=== PATIENT | male | born 1965 | race Caucasian/White ===

== ENCOUNTER 2016-12-13 17:56 | Inpatient (IN) | payer OTHER ==
[~2016-12-13] VITALS: Ht 167.6 cm; Wt 67.6 kg
[~2016-12-13 17:56] MED LIST: AZIT250T94 PO; GLYB1TAB3 PO; IBUP-1542 PO
[2016-12-13] MEDS ORDERED: SOD CHLORIDE 0.9% 1,000 ML IV STA (20:17)
[2016-12-13 20:43] LABS: BASOPHILS % 0.6 % (0.0-2.0); EOSINOPHILS # 0.3 10^3/ul (0.0-0.5); EOSINOPHILS % 4.3 % (0.0-7.0); HEMATOCRIT 30.9 % (42.0-52.0); HEMOGLOBIN 10.7 g/dl (14.0-18.0); LYMPHOCYTES # 2.2 10^3/ul (0.8-2.9); LYMPHOCYTES % 33.5 % (15.0-51.0); MEAN CORPUSCULAR HEMOGLOBIN 30.8 pg (29.0-33.0); MEAN CORPUSCULAR HGB CONC 34.6 g/dl (32.0-37.0); MEAN PLATELET VOLUME 9.4 fl (7.4-10.4); MONOCYTE # 0.5 10^3/ul (0.3-0.9); MONOCYTES % 8.2 % (0.0-11.0); NEUTROPHILS % 53.2 % (39.0-77.0); PLATELET COUNT 241 10^3/UL (140-415); RED BLOOD COUNT 3.47 10^6/ul (4.70-6.10); RED CELL DISTRIBUTION WIDTH 12.9 % (11.5-14.5); WHITE BLOOD COUNT 6.5 10^3/ul (4.8-10.8)
[2016-12-13] MEDS ORDERED: MECL12.574 PO (20:43)
[2016-12-13] MEDS ORDERED: FER325 PO (20:43)
[2016-12-13] MEDS ORDERED: SITA100T8 PO (20:44)
[2016-12-13 20:49] LABS: ALANINE AMINOTRANSFERASE 21 IU/L (13-69); ALBUMIN 4.2 g/dl (3.3-4.9); ALBUMIN/GLOBULIN RATIO 1.27; ALKALINE PHOSPHATASE 72 IU/L (42-121); ANION GAP 12 (8-16); ASPARTATE AMINO TRANSFERASE 16 IU/L (15-46); BILIRUBIN,INDIRECT 0.2 mg/dl (0-1.1); BILIRUBIN,TOTAL 0.2 mg/dl (0.2-1.3); BLOOD UREA NITROGEN 38 mg/dl (7-20); CALCIUM 9.4 mg/dl (8.4-10.2); CARBON DIOXIDE 24 mmol/L (21-31); CHLORIDE 110 mmol/L (97-110); CREATININE 1.81 mg/dl (0.61-1.24); GLUCOSE 158 mg/dl (70-220); POTASSIUM 4.9 mmol/L (3.5-5.1); SODIUM 141 mmol/L (135-144); TOTAL PROTEIN 7.5 g/dl (6.1-8.1)
[2016-12-13 21:02] LABS: TROPONIN-I < 0.012 ng/ml (0.00-0.12)
--- NOTE | 2016-12-13 21:21 | RADRPT ---
PROCEDURE: XR Chest. CLINICAL INDICATION: Abdominal pain. TECHNIQUE: Single frontal view of the chest. COMPARISON: 09/08/2013. FINDINGS: The cardiomediastinal silhouette is within normal limits. The lungs are clear. No signs of pleural f luid or pneumothorax are seen. The osseous structures and soft tissues are unremarkable. IMPRESSION: No evidence for active cardiopulmonary disease. RPTAT: [facility] Physician Salome Date Time Electronically viewed and signed by Maury Singletary Physician on 12/13/2016 21:20 RS/
[2016-12-13 21:48] LABS: ADD UMIC NO; UR ASCORBIC ACID NEGATIVE (NEGATIVE); UR BACTERIA FEW /HPF (NONE SEEN); UR BILIRUBIN (Dip) NEGATIVE (NEGATIVE); UR BLOOD (Dip) NEGATIVE (NEGATIVE); UR CLARITY SLIGHTLY CLOUDY (CLEAR); UR COLOR YELLOW (YELLOW); UR GLUCOSE (Dip) 1+ mg/dL (NEGATIVE); UR KETONES (Dip) NEGATIVE (NEGATIVE); UR LEUKOCYTE ESTERASE (Dip) NEGATIVE Leu/ul (NEGATIVE); UR NITRITE (Dip) NEGATIVE (NEGATIVE); UR RBC 1 /HPF (0-5); UR TOTAL PROTEIN (Dip) NEGATIVE (NEGATIVE); UR UROBILINOGEN (Dip) NEGATIVE (NEGATIVE)
[2016-12-13 22:56] VITALS: TEMP 98.7
--- NOTE | 2016-12-13 23:14 | ERA ---
ER Documentation Chief Complaint Date/Time DATE: 12/13/16 TIME: 23:13 Chief Complaint SENT BY PMD TO HAVE KIDNEYS CHECK, AFTER BLOOD TEST RESULTS HPI 51-year-old man referred here to have his creatinine checked, PMD checked labs last week and told him the Cr level was abnormal. Pt has had flank pain. Pt denies weight loss, no fever, no hematuria, no CP, no SOB. ROS All systems reviewed and are negative except as per history of present illness. Medications Home Meds Active Scripts Tamsulosin Hcl* (Flomax*) 0.4 Mg Cap.er.24h, 0.4 MG PO HS, #30 CAP Prov:MARK LEMUS V. HEAD GRINDER 12/16/16 Reported Medications Sitagliptin* (Januvia*) 100 Mg Tablet, 100 MG PO DAILY, #30 TAB 12/13/16 Ferrous Sulfate* (Ferrous Sulfate*) 325 Mg Tabec, 325 MG PO Q12H, TAB 12/13/16 Meclizine Hcl* (Antivert*) 12.5 Mg Tab, 12.5 MG PO TID, #30 TAB 12/13/16 Discontinued Reported Medications Glyburide, Micro-Metformin Hcl (Glyburid-Metformin) 1 Tab Tablet, 1 TAB PO DAILY 09/08/13 Discontinued Scripts Ibuprofen* (Ibuprofen*) 600 Mg Tablet, 600 MG PO Q6, #20 TAB Prov:BHAVNA VAZ MD 06/09/15 Azithromycin* (Zithromax*) 250 Mg Tablet, 250 MG PO .ZPACK DIRECTED, #6 TAB TAKE 500 MG (2 TABS) THE FIRST DAY THEN 250 MG (1 TAB) DAYS 2-5 Prov:BHAVNA VAZ MD 06/09/15 Allergies Allergies: Coded Allergies: No Known Allergy (Unverified , 12/13/16) PMhx/Soc anemia, DM, BPH History of Surgery: No (APPENDIX 2002) Anesthesia Reaction: No Hx Neurological Disorder: No Hx Respiratory Disorders: No Hx Cardiac Disorders: No Hx Psychiatric Problems: No Hx Miscellaneous Medical Probl: Yes (DM, VERTIGO) Hx Alcohol Use: No Hx Substance Use: No Hx Tobacco Use: No Smoking Status: Never smoker FmHx Family History: No diabetes Physical Exam Vitals Vital Signs Date Time Temp Pulse Resp B/P Pulse Ox O2 Delivery O2 Flow Rate FiO2 12/13/16 19:30 98.7 86 15 119/83 100 Room Air 12/13/16 18:11 99.4 94 20 102/58 96 Physical Exam GENERAL: Well-developed, well-nourished, well-hydrated, in no apparent distress , looks nontoxic in appearance HEENT: Moist mucous membranes, pink conjunctiva, no cervical spine tenderness or step-off deformities, no goiter, no jaundice or icterus, extraocular movements intact without pain. No submandibular induration, and no pharyngeal erythema NEURO: Alert and oriented 3, cranial nerves II through XII intact bilaterally, pupils equal round reactive to light, no focal deficits or facial asymmetry, sensation intact distally Strength 5/5 in upper and lower extremities bilaterally CARDIAC: Regular rate and rhythm, no murmurs rubs or gallops LUNGS: Clear bilaterally no wheezing crackles or stridor ABDOMEN: Soft nontender, no guarding, no rigidity, no rebound, no psoas sign no obturator sign. Normoactive bowel sounds SKIN: Warm and dry to touch, no abrasions, contusions, or hematomas, no lacerations, no ecchymosis, no target lesions, and without ulcers EXTREMITIES: No clubbing cyanosis or edema, calves are bilaterally symmetrical, no Homans sign, no popliteal cord sign. Distal pulses equal and bilateral PSYCH: Normal affect without agitation or irritability Result Diagram: 12/16/1651112/16/16 05 Results 24 hrs Laboratory Tests Test 12/13/16 19:34 12/13/16 21:00 White Blood Count 6.510^3/ul Red Blood Count 3.4710^6/ul Hemoglobin 10.7g/dl Hematocrit 30.9% Mean Corpuscular Volume 89.0fl Mean Corpuscular Hemoglobin 30.8pg Mean Corpuscular Hemoglobin Concent 34.6g/dl Red Cell Distribution Width 12.9% Platelet Count 15515^3/UL Mean Platelet Volume 9.4fl Neutrophils % 53.2% Lymphocytes % 33.5% Monocytes % 8.2% Eosinophils % 4.3% Basophils % 0.6% Nucleated Red Blood Cells % 0.0/100WBC Neutrophils # (Manual) 3.510^3/ul Lymphocytes # 2.210^3/ul Monocytes # 0.510^3/ul Eosinophils # 0.310^3/ul Basophils # 0.010^3/ul Nucleated Red Blood Cells # 0.010^3/ul Sodium Level 141mmol/L Potassium Level 4.9mmol/L Chloride Level 110mmol/L Carbon Dioxide Level 24mmol/L Anion Gap 12 Blood Urea Nitrogen 38mg/dl Creatinine 1.81mg/dl Glucose Level 158mg/dl Calcium Level 9.4mg/dl Total Bilirubin 0.2mg/dl Direct Bilirubin 0.00mg/dl Indirect Bilirubin 0.2mg/dl Aspartate Amino Transf (AST/SGOT) 16IU/L Alanine Aminotransferase (ALT/SGPT) 21IU/L Alkaline Phosphatase 72IU/L Troponin I < 0.012ng/ml Total Protein 7.5g/dl Albumin 4.2g/dl Globulin 3.30g/dl Albumin/Globulin Ratio 1.27 Lipase 173U/L Urine Color YELLOW Urine Clarity SLIGHTLY CLOUDY Urine pH 5.0 Urine Specific [place] 1.020 Urine Ketones NEGATIVEmg/dL Urine Nitrite NEGATIVEmg/dL Urine Bilirubin NEGATIVEmg/dL Urine Urobilinogen NEGATIVEmg/dL Urine Leukocyte Esterase NEGATIVELeu/ul Urine Microscopic RBC 1/HPF Urine Microscopic WBC 0/HPF Urine Bacteria FEW/HPF Urine Hemoglobin NEGATIVEmg/dL Urine Random Sodium 117mmol/L Urine Random Potassium 55.8mmol/L Urine Glucose 1+mg/dL Urine Total Protein NEGATIVEmg/dl Current Medications Medications (Trade) Dose Ordered Sig/Isabella Route PRN Reason Start Time Stop Time Status Last Admin Dose Admin Sodium Chloride (NS) 1,000 ml @ 1,000 mls/hr Q1H STAT IV 12/13/16 20:17 12/13/16 21:16 DC 12/13/16 21:14 Procedures/[facility] IV line was established patient was placed on content developer rhythm strip revealed a sinus rhythm at about 90 bpm with upright P and T waves. Patient was afebrile. EKG performed, read by me: 92 bpm, normal sinus rhythm, normal axis, no acute ST segment changes, narrow QRS complex, with good R-wave progression in precordial leads. One AP view of the chest performed, read by me reveals no acute infiltrates, normal mediastinum, sharp costophrenic and cardiac borders, no air under the diaphragm. Otherwise unremarkable chest x-ray. Chau catheter was passed normal urine output, clear. CBC normal, Cr elevated 1.8, urine cultures pending. Departure Diagnosis: Primary Impression: Acute kidney injury Condition: ISSA Cotter MD Dec 13, 2016 23:14
[2016-12-14] VITALS: BP 134/81; PULSE 80; RESP 18
[2016-12-14 00:07] VITALS: Ht 167.6 cm; Wt 67.6 kg
[2016-12-14] MEDS ORDERED: DEXTROSE 50% 50 ML SYRINGE IV PRN ×2 (01:30)
[2016-12-14] MEDS ORDERED: GLUCOSE GEL 15 GRAM TUBE PO PRN ×2 (01:30)
[2016-12-14] MEDS ORDERED: ACETAMINOPHEN 325 MG TAB PO PRN (01:30)
[2016-12-14] MEDS ORDERED: GLUCOSE GEL 15 GRAM TUBE BUCCAL PRN (01:30)
[2016-12-14] MEDS ORDERED: ONDANSETRON 4 MG INJ IV PRN (01:30)
[2016-12-14] MEDS ORDERED: GLUCAGON 1 MG INJ IM PRN (01:30)
[2016-12-14] MEDS: SOD CHLORIDE 0.9% 1,000 ML IV SCH ×3 (02:00→22:00)
[2016-12-14 02:22] LABS: POTASSIUM,URINE RANDOM 55.8 mmol/L (25-125)
[2016-12-14] MEDS: ACCU-CHEK XX SCH ×2 (02:33)
[2016-12-14 06:57] LABS: BASOPHILS % 0.3 % (0.0-2.0); EOSINOPHILS # 0.3 10^3/ul (0.0-0.5); EOSINOPHILS % 4.3 % (0.0-7.0); LYMPHOCYTES # 2.5 10^3/ul (0.8-2.9); LYMPHOCYTES % 39.4 % (15.0-51.0); MEAN CORPUSCULAR HEMOGLOBIN 30.8 pg (29.0-33.0); MEAN CORPUSCULAR HGB CONC 34.5 g/dl (32.0-37.0); MEAN CORPUSCULAR VOLUME 89.2 fl (82.0-101.0); MEAN PLATELET VOLUME 9.1 fl (7.4-10.4); MONOCYTE # 0.6 10^3/ul (0.3-0.9); NEUTROPHILS % 46.8 % (39.0-77.0); PLATELET COUNT 220 10^3/UL (140-415); RED BLOOD COUNT 3.25 10^6/ul (4.70-6.10); WHITE BLOOD COUNT 6.2 10^3/ul (4.8-10.8)
[2016-12-14 07:25] LABS: ALBUMIN 3.5 g/dl (3.3-4.9); ALBUMIN/GLOBULIN RATIO 1.2; BILIRUBIN,INDIRECT 0.3 mg/dl (0-1.1); BILIRUBIN,TOTAL 0.3 mg/dl (0.2-1.3); CALCIUM 8.8 mg/dl (8.4-10.2); CHOL/HDL RATIO 5.3 RATIO; CREATININE 1.31 mg/dl (0.61-1.24); MAGNESIUM 1.9 mg/dl (1.7-2.5); PHOSPHORUS 3.1 mg/dl (2.5-4.9); POTASSIUM 4.7 mmol/L (3.5-5.1); TOTAL PROTEIN 6.4 g/dl (6.1-8.1)
[2016-12-14 07:45] VITALS: BP 127/75; RESP 20
[2016-12-14] MEDS: INSULIN GLARGINE [LANtus] 3 ML PEN SC SCH (08:11)
[2016-12-14] MEDS ORDERED: INSULIN ASPART [NOVOLOG] 3 ML PEN SC SCH (08:15)
[2016-12-14] MEDS: FERROUS SULFATE (EC) 325 MG TAB PO SCH ×2 (09:49→20:43)
[2016-12-14] MEDS: HEPARIN 5,000 UNIT/0.5 ML VIAL SC SCH ×2 (09:51→20:43)
--- NOTE | 2016-12-14 10:06 | HP ---
Date/Time of Note Date/Time of Note DATE: 12/14/16 TIME: 10:00 Assessment/Plan VTE Prophylaxis VTE Prophylaxis Intervention: SCD's Lines/Catheters IV [facility]from [facility] Saline Lock Urinary Cath still in place: Yes Assessment/Plan Assessment/Plan 1. Acute kidney injury -Patient reported that he had to " force" himself to urinate yesterday and as such etiology is likely post renal. Currently there is a Chau in place. will check urine electrolytes and obtain a renal ultrasound. Nephrology consult has been placed. 2. History of diabetes -Check A1c -Insulin while in-house 3. Normocytic anemia, likely of chronic disease given history of diabetes -will evaluate for iron deficiency. -Transfuse as needed HPI/ROS Admit Date/Time Admit Date/Time Dec 13, 2016 at 22:35 Hx of Present Illness This is a 51-year-old male with a history of diabetes who was sent from a clinic for her elevated creatinine. He was at the PMD office for regular checkup regarding his diabetes when his creatinine was found to be elevated. He was told to go to the ER for evaluation. He denied a history of renal disease. He stated that yesterday he had to "force" himself to urinate. Denied dysuria, hematuria, flank pain or fever. Patient developed nasal congestion after he was admitted here and the other than that he is feeling well and does not have any complaints. When he presented to the ER, labs shows a creatinine of 1.81. . PMH/Family/Social Past Medical History Medical History: diabetes Social History Smoking Status: Never smoker Exam/Review of Systems Vital Signs Vitals Vital Signs Date Time Temp Pulse Resp B/P Pulse Ox O2 Delivery O2 Flow Rate FiO2 12/14/16 07:45 97.5 82 20 127/75 97 12/14/16 00:00 Room Air Intake and Output 12/13/16 12/13/16 12/14/16 15:00 23:00 07:00 Intake Total 600 ml Output Total 600 ml Balance 0 ml Exam Constitutional: alert, oriented, well developed Head: atraumatic, normocephalic Eyes: EOMI Respiratory: clear to auscultation, normal air movement Cardiovascular: nl pulses, regular rate and rhythm Gastrointestinal: non-tender, soft Extremities: normal pulses Labs Result Diagram: 12/14/16 0536 12/14/16 0536 Medications Medications Current Medications Sodium Chloride (NS) 1,000 ml @ 100 mls/hr Q10H IV Last administered on 02:00; Admin Dose 100 MLS/HR; Start 12/14/16 at 01:30; Stop 12/15/16 at 01: 30 Insulin Glargine (Lantus) 10 unit DAILY@08 SC Last administered on 12/14/16 08 :11; Admin Dose 10 UNIT; Start 12/14/16 at 08:00 Acetaminophen (Tylenol Tab) 650 mg Q6H PRN PO PAIN AND OR ELEVATED TEMP; Start 12/14/16 at 01:30 Ondansetron HCl (Zofran Inj) 4 mg Q4H PRN IV NAUSEA AND/OR VOMITING; Start 03/20 at 01:30 Heparin Sodium (Porcine) (Heparin (5000 Units/0.5 ml)) 5,000 unit BID SC Last administered on 12/14/16 09:51; Admin Dose 5,000 UNIT; Start 12/14/16 at 09:00 Diagnostic Test (Pha) (Accu-Chek) 1 ea 02 XX Last administered on 12/14/16 02: 33; Admin Dose 1 EA; Start 12/14/16 at 02:00 Diagnostic Test (Pha) (Accu-Chek) 1 ea 02 XX Last administered on 12/14/16 02: 33; Admin Dose 1 EA; Start 12/14/16 at 02:00 Ferrous Sulfate (Ferrous Sulfate (Ec)) 325 mg BID PO Last administered on 09:49; Admin Dose 325 MG; Start 12/14/16 at 09:00 Meclizine HCl (Antivert) 12.5 mg TID PO ; Start 12/14/16 at 09:00 Miscellaneous Information 1 ea NOTE XX ; Start 12/14/16 at 01:30 Glucose (Glutose) 15 gm Q15M PRN PO DECREASED GLUCOSE; Start 12/14/16 at 01:30 Glucose (Glutose) 22.5 gm Q15M PRN PO DECREASED GLUCOSE; Start 12/14/16 at 01: 30 Dextrose (D50w Syringe) 25 ml Q15M PRN IV DECREASED GLUCOSE; Start 12/14/16 at 01:30 Dextrose (D50w Syringe) 50 ml Q15M PRN IV DECREASED GLUCOSE; Start 12/14/16 at 01:30 Glucagon (Glucagen) 1 mg Q15M PRN IM DECREASED GLUCOSE; Start 12/14/16 at 01:30 Glucose (Glutose) 15 gm Q15M PRN BUCCAL DECREASED GLUCOSE; Start 12/14/16 at 01 :30 TOÑITO HOSKINS MD Dec 14, 2016 10:06
--- NOTE | 2016-12-14 11:45 | PN ---
Date/Time of Note Date/Time of Note DATE: 12/14/16 TIME: 11:41 Assessment/Plan VTE Prophylaxis VTE Prophylaxis Intervention: SCD's Lines/Catheters IV [facility] Saline Lock Urinary Cath still in place: Yes Reason Cath still needed: other (indicate) Assessment/Plan Chief Complaint/Hosp Course 51-year-old male admitted for dysuria and abnormal renal function 1. Acute kidney injury, likely post renal obstructive uropathy #2. Creatinine stabilizing. -Nephrology on board. Follow-up with renal ultrasound. -Avoid nephrotoxins and monitor renal function closely. 2. Urinary retention. -Continue Chau. -Follow-up with renal ultrasound and will consider urology if indicated. 3. Adult onset diabetes. A1c 6.3 -Continue Lantus, Accu-Cheks, ISS -Patient on Januvia at home. Pharmacy to substitute possibly with Tradjenta. 4. Normocytic anemia, likely of chronic disease given history of diabetes. H&H stable -will evaluate for iron deficiency. Plan: Follow-up with nephrology recommendations. Continue Chau for now. Patient was seen in collaboration with Dr. Newton. Problems: Subjective 24 Hr Interval Summary Free Text/Dictation Patient doing well. Denies any further dysuria. Chau cath draining clear urine. Remains afebrile. Exam/Review of Systems Vital Signs Vitals Vital Signs Date Time Temp Pulse Resp B/P Pulse Ox O2 Delivery O2 Flow Rate FiO2 12/14/16 07:45 97.5 82 20 127/75 97 12/14/16 00:00 Room Air Intake and Output 12/13/16 12/13/16 12/14/16 15:00 23:00 07:00 Intake Total 600 ml Output Total 600 ml Balance 0 ml Exam General: Well developed,adequately built, not in any acute distress . HEENT: Normocephalic, Atraumatic, No laceration or hematoma; Eyes: PEERL, Conjunctiva clear, Anicteric sclera Neck: Supple without any lymphadenopathy, nontender, no JVD, no carotid bruits, trachea midline, no thyromegaly Cardiac: S1, S2 auscultated, regular rhythm and rate, no mumurs or gallop Pulmonary: Normal respiratory effort. Chest clear to auscultation bilaterally, no adventitious breath sounds GI: Abdomen normal to inspection. Soft, non tender, non- distended, no masses, no rebound tenderness or guarding. Bowel sounds active on all four quadrants Genitourinary: Chau draining clear yellow urine Extremities: No cyanosis, clubbing, or edema. Pulses [2+] bilaterally. Full ROM on all four extremities. No focal weakness appreciated. Neurologic: Alert to person, place, time, and situation. Affect appropriate, intact sensation. Skin: Clean,dry, and intact. No ecchymosis, no rashes, or lesions Results Result Diagram: 12/14/1636 12/14/16 0536 Results 24 hrs Laboratory Tests Test 12/13/16 19:34 12/13/16 21:00 12/14/16 02:32 12/14/16 05:36 White Blood Count 6.5 # 6.2 Red Blood Count 3.47 L 3.25 L Hemoglobin 10.7 L 10.0 L Hematocrit 30.9 L 29.0 L Mean Corpuscular Volume 89.0 89.2 Mean Corpuscular Hemoglobin 30.8 30.8 Mean Corpuscular Hemoglobin Concent 34.6 34.5 Red Cell Distribution Width 12.9 13.0 Platelet Count 241 220 Mean Platelet Volume 9.4 # 9.1 Neutrophils % 53.2 46.8 Lymphocytes % 33.5 39.4 Monocytes % 8.2 9.0 Eosinophils % 4.3 4.3 Basophils % 0.6 0.3 Nucleated Red Blood Cells % 0.0 0.0 Neutrophils # (Manual) 3.5 2.9 Lymphocytes # 2.2 2.5 Monocytes # 0.5 0.6 Eosinophils # 0.3 0.3 Basophils # 0.0 0.0 Nucleated Red Blood Cells # 0.0 0.0 Sodium Level 141 140 Potassium Level 4.9 4.7 Chloride Level 110 111 H Carbon Dioxide Level 24 25 Anion Gap 12 9 Blood Urea Nitrogen 38 H 32 H Creatinine 1.81 H 1.31 H Glucose Level 158 157 Calcium Level 9.4 8.8 Total Bilirubin 0.2 0.3 Direct Bilirubin 0.00 0.00 Indirect Bilirubin 0.2 0.3 Aspartate Amino Transf (AST/SGOT) 16 14 L Alanine Aminotransferase (ALT/SGPT) 21 29 Alkaline Phosphatase 72 63 Troponin I < 0.012 Total Protein 7.5 6.4 # Albumin 4.2 3.5 Globulin 3.30 H 2.90 Albumin/Globulin Ratio 1.27 1.20 Lipase 173 Urine Color YELLOW Urine Clarity SLIGHTLY CLOUDY A Urine pH 5.0 Urine Specific [place] 1.020 Urine Ketones NEGATIVE Urine Nitrite NEGATIVE Urine Bilirubin NEGATIVE Urine Urobilinogen NEGATIVE Urine Leukocyte Esterase NEGATIVE Urine Microscopic RBC 1 Urine Microscopic WBC 0 Urine Bacteria FEW A Urine Hemoglobin NEGATIVE Urine Random Sodium 117 H Urine Random Potassium 55.8 Urine Glucose 1+ H Urine Total Protein NEGATIVE Bedside Glucose 162 Hemoglobin A1c 6.4 H Phosphorus Level 3.1 Magnesium Level 1.9 Triglycerides Level 171 H Cholesterol Level 166 LDL Cholesterol, Calculated 101 HDL Cholesterol 31 Cholesterol/HDL Ratio 5.3 Test 12/14/16 07:48 Bedside Glucose 167 Medications Medications Current Medications Sodium Chloride (NS) 1,000 ml @ 100 mls/hr Q10H IV Last administered on 02:00; Admin Dose 100 MLS/HR; Start 12/14/16 at 01:30; Stop 12/15/16 at 01: 30 Insulin Glargine (Lantus) 10 unit DAILY@08 SC Last administered on 12/14/16 08 :11; Admin Dose 10 UNIT; Start 12/14/16 at 08:00 Acetaminophen (Tylenol Tab) 650 mg Q6H PRN PO PAIN AND OR ELEVATED TEMP; Start 12/14/16 at 01:30 Ondansetron HCl (Zofran Inj) 4 mg Q4H PRN IV NAUSEA AND/OR VOMITING; Start 03/20 at 01:30 Heparin Sodium (Porcine) (Heparin (5000 Units/0.5 ml)) 5,000 unit BID SC Last administered on 12/14/16 09:51; Admin Dose 5,000 UNIT; Start 12/14/16 at 09:00 Diagnostic Test (Pha) (Accu-Chek) 1 ea 02 XX Last administered on 12/14/16 02: 33; Admin Dose 1 EA; Start 12/14/16 at 02:00 Diagnostic Test (Pha) (Accu-Chek) 1 ea 02 XX Last administered on 12/14/16 02: 33; Admin Dose 1 EA; Start 12/14/16 at 02:00 Ferrous Sulfate (Ferrous Sulfate (Ec)) 325 mg BID PO Last administered on 09:49; Admin Dose 325 MG; Start 12/14/16 at 09:00 Meclizine HCl (Antivert) 12.5 mg TID PO ; Start 12/14/16 at 09:00 Miscellaneous Information 1 ea NOTE XX ; Start 12/14/16 at 01:30 Glucose (Glutose) 15 gm Q15M PRN PO DECREASED GLUCOSE; Start 12/14/16 at 01:30 Glucose (Glutose) 22.5 gm Q15M PRN PO DECREASED GLUCOSE; Start 12/14/16 at 01: 30 Dextrose (D50w Syringe) 25 ml Q15M PRN IV DECREASED GLUCOSE; Start 12/14/16 at 01:30 Dextrose (D50w Syringe) 50 ml Q15M PRN IV DECREASED GLUCOSE; Start 12/14/16 at 01:30 Glucagon (Glucagen) 1 mg Q15M PRN IM DECREASED GLUCOSE; Start 12/14/16 at 01:30 Glucose (Glutose) 15 gm Q15M PRN BUCCAL DECREASED GLUCOSE; Start 12/14/16 at 01 :30 MARK LEMUS NP Dec 14, 2016 11:45
[2016-12-14] MEDS: INSULIN ASPART [NOVOLOG] 3 ML PEN SC SCH ×3 (11:49→20:45)
[2016-12-14] MEDS: MECLIZINE 12.5 MG TAB PO SCH ×3 (11:52→20:43)
[2016-12-14 12:36] LABS: PHOSPHORUS 3.2 mg/dl (2.5-4.9)
[2016-12-14 13:06] LABS: PROSTATE SPECIFIC ANTIGEN 1.1 ng/ml (0.0-4.0)
[2016-12-14 14:46] VITALS: BP 118/70; RESP 18
--- NOTE | 2016-12-14 15:38 | RADRPT ---
PROCEDURE: US renal. CLINICAL INDICATION: Acute kidney injury. TECHNIQUE: Cunha scale and color Doppler imaging of the kidneys and bladder. COMPARISON: None Available. FINDINGS: Right kidney: 11.8 cm in length. Normal in echogenicity. No nephrolithiasis, hydronephrosis, or feliz al mass. Left kidney: 11.5 cm in length. Normal in echogenicity. No nephrolithiasis, hydronephrosis, or bruno l mass. Bladder: Chau catheter in place, partially distended. IMPRESSION: 1. Unremarkable renal ultrasound. RPTAT: HLBP .Yaniv Flores MD, Date Time Electronically viewed and signed by .Yaniv Flores MD, MD on 12/14/2016 15:38 .P/
--- NOTE | 2016-12-14 16:33 | CONS ---
DATE OF ADMISSION: 12/13/2016 DATE OF CONSULTATION: 12/14/2016 REQUESTING PHYSICIAN: Jamie Gastelum MD REASON FOR CONSULTATION: Thank you very much for allowing me to evaluate this 51-year-old male admitted to the hospital with difficulty voiding and renal insufficiency. HISTORICAL EVENTS: The history was obtained from his daughter who was at the bedside. The patient indicates he has had diabetes for approximately 15 years and has been evaluated on a regular basis by his "clinic doctor". He has not been told in the past that he has had any blood or protein in his urine. He has had no history of kidney stones or urinary tract infection. He did undergo an evaluation several days ago and was called and told that his kidney function was abnormal. Because of the latter he sought help at [facility] and was admitted. He has noted for the last 2-3 weeks a sense of difficulty initiating his urinary stream. Having to strain to begin urine flow. He denied dysuria, flank pain, fever, chills, or blood in his urine. He has not been taking any nonsteroidals. He has had no flank pain. PAST MEDICAL HISTORY: Is unrevealing except for diabetes. He has no history of hypertension or coronary disease. ALLERGIES: NONE. FAMILY HISTORY: To be reviewed later. PHYSICAL EXAMINATION: VITAL SIGNS: BP 125/75, respirations were 18. He was afebrile. HEENT: Eyes, extraocular muscles were full. Nose, mouth and throat were normal. NECK: Supple. There was no jugular venous distention, thyroid enlargement, or adenopathy. LUNGS: Clear. HEART: Rhythm regular. No murmur. No 3rd or 4th sound. ABDOMEN: Nontender. Liver and spleen were not palpable. No mass or tenderness were noted. EXTREMITIES: No edema. Calves nontender. Pulses were reduced. NEUROLOGIC: No lateralizing motor weakness. LABORATORY AND DIAGNOSTIC STUDIES: Hematocrit 30.9 on the 11th, 29 on the 12th, white count and platelet count were normal. Chemistries on admission, lytes were normal, BUN 38, creatinine 1.81. Troponin was negative. Albumin 4.2, with creatinine 1.31 today, lytes were normal. A1c level was 6.4. Urinalysis: Random sodium was 117, there was 1+ glucose, the absence of proteinuria. Post admission, a Chau catheter was placed and a large volume of urine obtained (trying to confirm exact volume with floor nursing). IMPRESSION: Given his symptoms of difficulty initiating his urinary stream and lower abdominal discomfort and brisk urine output after placing his Chau, I agree with you that obstructive uropathy at the level of the prostate is likely. The latter is reflected by a marked improvement in his renal function and importantly the absence of proteinuria, red cells or white cells in his urine. RECOMMENDATIONS: Await ultrasound of the kidneys which you ordered. Continue IV fluids. PSA to be obtained. Will need formal urologic evaluation. Anemia is being pursued. Dictated By: Efrain English MD /gertrude/samina /Document#: [id number]
[2016-12-14 19:04] LABS: PROTEIN/CREAT RATIO 0.39 RATIO
[2016-12-14 20:04] VITALS: BP 142/85; RESP 20
[2016-12-15 02:00] VITALS: BP 98/59; RESP 20
[2016-12-15] MEDS: ACCU-CHEK XX SCH ×2 (02:00)
[2016-12-15 06:22] LABS: BASOPHILS % 0.4 % (0.0-2.0); EOSINOPHILS # 0.2 10^3/ul (0.0-0.5); EOSINOPHILS % 3.6 % (0.0-7.0); HEMATOCRIT 26.8 % (42.0-52.0); HEMOGLOBIN 8.9 g/dl (14.0-18.0); LYMPHOCYTES # 2.5 10^3/ul (0.8-2.9); LYMPHOCYTES % 44.9 % (15.0-51.0); MEAN CORPUSCULAR HEMOGLOBIN 29.4 pg (29.0-33.0); MEAN CORPUSCULAR HGB CONC 33.2 g/dl (32.0-37.0); MEAN CORPUSCULAR VOLUME 88.4 fl (82.0-101.0); MONOCYTE # 0.5 10^3/ul (0.3-0.9); MONOCYTES % 9.2 % (0.0-11.0); NEUTROPHILS % 41.7 % (39.0-77.0); PLATELET COUNT 192 10^3/UL (140-415); RED BLOOD COUNT 3.03 10^6/ul (4.70-6.10); WHITE BLOOD COUNT 5.6 10^3/ul (4.8-10.8)
[2016-12-15 06:48] LABS: ALBUMIN 3.1 g/dl (3.3-4.9); ALBUMIN/GLOBULIN RATIO 1.06; BILIRUBIN,INDIRECT 0.5 mg/dl (0-1.1); BILIRUBIN,TOTAL 0.5 mg/dl (0.2-1.3); CALCIUM 8.8 mg/dl (8.4-10.2); CREATININE 1.1 mg/dl (0.61-1.24); POTASSIUM 4.4 mmol/L (3.5-5.1)
[2016-12-15 06:54] LABS: IRON 64 ug/dl (35-150)
[2016-12-15 07:04] LABS: TOTAL IRON BINDING CAPACITY 261 ug/dl (241-421)
[2016-12-15 07:22] LABS: FERRITIN 99.4 ng/ml (11.1-264.0)
--- NOTE | 2016-12-15 07:38 | CONS ---
Date/Time of Note Date/Time of Note DATE: 12/15/16 TIME: 07:35 Assessment/Plan Assessment/Plan Additional Assessment/Plan 1. Renal fx has improved and did so rapidly following mast catheter placement. Urol eval is needed re--obstructive uropathy. He has no significant proteinuria. 2. Anemia cause unclear and needs to be pursued. Additional studies ordered. 3. Will gladly see again on request. Consultation Date/Type/Reason Admit Date/Time Dec 13, 2016 at 22:35 Initial Consult Date Detailed Summary Respiratory: No cough, No shortness of breath Cardiovascular: No chest pain Gastrointestinal: no complaints Genitourinary: other (mast in place) Exam/Review of Systems Vital Signs Vitals Vital Signs Date Time Temp Pulse Resp B/P Pulse Ox O2 Delivery O2 Flow Rate FiO2 12/15/16 02:00 97.7 72 20 98/59 98 12/14/16 00:00 Room Air Intake and Output 12/14/16 12/14/16 12/15/16 15:00 23:00 07:00 Intake Total 600 ml 2340 ml 350 ml Output Total 2100 ml Balance 600 ml 240 ml 350 ml Exam Neck: No jvd Respiratory: clear to auscultation Cardiovascular: regular rate and rhythm Gastrointestinal: soft Extremities: No edema (and no calf tend bilat) Results Result Diagram: 12/15/16 0544 12/15/16 0544 Results 24 hrs Laboratory Tests Test 12/14/16 07:48 12/14/16 11:46 12/14/16 15:10 12/14/16 16:51 Bedside Glucose 167 121 124 Urine Random Creatinine 42.62 Urine Protein/Creatinine Ratio 0.39 Urine Total Protein 17.0 H Test 12/14/16 20:44 12/15/16 05:44 Bedside Glucose 144 White Blood Count 5.6 Red Blood Count 3.03 L Hemoglobin 8.9 L Hematocrit 26.8 L Mean Corpuscular Volume 88.4 Mean Corpuscular Hemoglobin 29.4 Mean Corpuscular Hemoglobin Concent 33.2 Red Cell Distribution Width 13.0 Platelet Count 192 Mean Platelet Volume 9.0 Neutrophils % 41.7 Lymphocytes % 44.9 Monocytes % 9.2 Eosinophils % 3.6 Basophils % 0.4 Nucleated Red Blood Cells % 0.0 Neutrophils # (Manual) 2.3 Lymphocytes # 2.5 Monocytes # 0.5 Eosinophils # 0.2 Basophils # 0.0 Nucleated Red Blood Cells # 0.0 Sodium Level 140 Potassium Level 4.4 Chloride Level 111 H Carbon Dioxide Level 26 Anion Gap 7 L Blood Urea Nitrogen 20 # Creatinine 1.10 Glucose Level 117 # Calcium Level 8.8 Iron Level 64 Total Iron Binding Capacity 261 Percent Iron Saturation 25 Ferritin 99.4 Total Bilirubin 0.5 Direct Bilirubin 0.00 Indirect Bilirubin 0.5 Aspartate Amino Transf (AST/SGOT) 13 L Alanine Aminotransferase (ALT/SGPT) 29 Alkaline Phosphatase 55 Total Protein 6.0 L Albumin 3.1 L Globulin 2.90 Albumin/Globulin Ratio 1.06 Medications Medications Current Medications Insulin Glargine (Lantus) 10 unit DAILY@08 SC Last administered on 12/14/16 08 :11; Admin Dose 10 UNIT; Start 12/14/16 at 08:00 Acetaminophen (Tylenol Tab) 650 mg Q6H PRN PO PAIN AND OR ELEVATED TEMP; Start 12/14/16 at 01:30 Ondansetron HCl (Zofran Inj) 4 mg Q4H PRN IV NAUSEA AND/OR VOMITING; Start 03/20 at 01:30 Heparin Sodium (Porcine) (Heparin (5000 Units/0.5 ml)) 5,000 unit BID SC Last administered on 12/14/16 20:43; Admin Dose 5,000 UNIT; Start 12/14/16 at 09:00 Diagnostic Test (Pha) (Accu-Chek) 1 ea 02 XX Last administered on 12/14/16 02: 33; Admin Dose 1 EA; Start 12/14/16 at 02:00 Diagnostic Test (Pha) (Accu-Chek) 1 ea 02 XX Last administered on 12/14/16 02: 33; Admin Dose 1 EA; Start 12/14/16 at 02:00 Ferrous Sulfate (Ferrous Sulfate (Ec)) 325 mg BID PO Last administered on 20:43; Admin Dose 325 MG; Start 12/14/16 at 09:00 Meclizine HCl (Antivert) 12.5 mg TID PO Last administered on 12/14/16 20:43; Admin Dose 12.5 MG; Start 12/14/16 at 09:00 Miscellaneous Information 1 ea NOTE XX ; Start 12/14/16 at 01:30 Glucose (Glutose) 15 gm Q15M PRN PO DECREASED GLUCOSE; Start 12/14/16 at 01:30 Glucose (Glutose) 22.5 gm Q15M PRN PO DECREASED GLUCOSE; Start 12/14/16 at 01: 30 Dextrose (D50w Syringe) 25 ml Q15M PRN IV DECREASED GLUCOSE; Start 12/14/16 at 01:30 Dextrose (D50w Syringe) 50 ml Q15M PRN IV DECREASED GLUCOSE; Start 12/14/16 at 01:30 Glucagon (Glucagen) 1 mg Q15M PRN IM DECREASED GLUCOSE; Start 12/14/16 at 01:30 Glucose (Glutose) 15 gm Q15M PRN BUCCAL DECREASED GLUCOSE; Start 12/14/16 at 01 :30 Linagliptin (Tradjenta) 5 mg DAILY PO ; Start 12/15/16 at 09:00 NINA WADDELL MD Dec 15, 2016 07:38
[2016-12-15 07:41] VITALS: BP 85/55; RESP 18
[2016-12-15 08:00] VITALS: BP 91/59
[2016-12-15] MEDS: INSULIN ASPART [NOVOLOG] 3 ML PEN SC SCH ×4 (08:01→20:38)
[2016-12-15] MEDS: MECLIZINE 12.5 MG TAB PO SCH ×3 (08:05→20:39)
[2016-12-15] MEDS: FERROUS SULFATE (EC) 325 MG TAB PO SCH ×2 (08:05→20:39)
[2016-12-15] MEDS: HEPARIN 5,000 UNIT/0.5 ML VIAL SC SCH ×2 (08:07→20:42)
[2016-12-15] MEDS: LINAGLIPTIN 5 MG TABLET PO SCH (08:08)
[2016-12-15] MEDS: INSULIN GLARGINE [LANtus] 3 ML PEN SC SCH (08:15)
--- NOTE | 2016-12-15 09:42 | PN ---
Date/Time of Note Date/Time of Note DATE: 12/15/16 TIME: 09:32 Assessment/Plan VTE Prophylaxis VTE Prophylaxis Intervention: SCD's Lines/Catheters IV Catheter Type (from [facility] Urinary Cath still in place: Yes Reason Cath still needed: other (indicate) Assessment/Plan Chief Complaint/Hosp Course 51-year-old male admitted for dysuria and abnormal renal function 1. Acute kidney injury most likely 2/2 obstructive uropathy. Resolved. Unremarkable renal US. -Nephrology eval appreciated -Avoid nephrotoxins and monitor renal function closely. 2. Urinary retention.With good output from Mast -Start Flomax and will try DC mast and see if patient can void-If not, will consider urology inpatient eval. 3. Adult onset diabetes. A1c 6.3. Good glycemic control. -Continue Lantus, Tradjenta, Accu-Cheks, ISS 4. Normocytic anemia, likely of chronic disease given history of diabetes. H&H stable Plan: Start Flomax and DC mast later today and if patient can void without difficulties, will DC home with outpatient urology eval. If patient unable to void, will reinsert mast and will have urology inpatient eval. Patient was seen in collaboration with Dr. Newton. Problems: Subjective 24 Hr Interval Summary Free Text/Dictation Doing well. No dysri/abdominal pain or other discomfort. Exam/Review of Systems Vital Signs Vitals Vital Signs Date Time Temp Pulse Resp B/P Pulse Ox O2 Delivery O2 Flow Rate FiO2 12/15/16 07:41 97.4 82 18 85/55 100 12/14/16 00:00 Room Air Intake and Output 12/14/16 12/14/16 12/15/16 15:00 23:00 07:00 Intake Total 600 ml 2340 ml 350 ml Output Total 2100 ml Balance 600 ml 240 ml 350 ml Exam General: Well developed,adequately built, not in any acute distress . HEENT: Normocephalic, Atraumatic, No laceration or hematoma; Eyes: PEERL, Conjunctiva clear, Anicteric sclera Neck: Supple without any lymphadenopathy, nontender, no JVD, no carotid bruits, trachea midline, no thyromegaly Cardiac: S1, S2 auscultated, regular rhythm and rate, no mumurs or gallop Pulmonary: Normal respiratory effort. Chest clear to auscultation bilaterally, no adventitious breath sounds GI: Abdomen normal to inspection. Soft, non tender, non- distended, no masses, no rebound tenderness or guarding. Bowel sounds active on all four quadrants Genitourinary: Mast draining clear yellow urine Extremities: No cyanosis, clubbing, or edema. Pulses [2+] bilaterally. Full ROM on all four extremities. No focal weakness appreciated. Neurologic: Alert to person, place, time, and situation. Affect appropriate, intact sensation. Skin: Clean,dry, and intact. No ecchymosis, no rashes, or lesions Results Result Diagram: 12/15/16 0544 12/15/16 0544 Results 24 hrs Laboratory Tests Test 12/14/16 11:46 12/14/16 15:10 12/14/16 16:51 12/14/16 20:44 Bedside Glucose 121 124 144 Urine Random Creatinine 42.62 Urine Protein/Creatinine Ratio 0.39 Urine Total Protein 17.0 H Test 12/15/16 05:44 12/15/16 07:56 White Blood Count 5.6 Red Blood Count 3.03 L Hemoglobin 8.9 L Hematocrit 26.8 L Mean Corpuscular Volume 88.4 Mean Corpuscular Hemoglobin 29.4 Mean Corpuscular Hemoglobin Concent 33.2 Red Cell Distribution Width 13.0 Platelet Count 192 Mean Platelet Volume 9.0 Neutrophils % 41.7 Lymphocytes % 44.9 Monocytes % 9.2 Eosinophils % 3.6 Basophils % 0.4 Nucleated Red Blood Cells % 0.0 Neutrophils # (Manual) 2.3 Lymphocytes # 2.5 Monocytes # 0.5 Eosinophils # 0.2 Basophils # 0.0 Nucleated Red Blood Cells # 0.0 Sodium Level 140 Potassium Level 4.4 Chloride Level 111 H Carbon Dioxide Level 26 Anion Gap 7 L Blood Urea Nitrogen 20 # Creatinine 1.10 Glucose Level 117 # Calcium Level 8.8 Iron Level 64 Total Iron Binding Capacity 261 Percent Iron Saturation 25 Ferritin 99.4 Total Bilirubin 0.5 Direct Bilirubin 0.00 Indirect Bilirubin 0.5 Aspartate Amino Transf (AST/SGOT) 13 L Alanine Aminotransferase (ALT/SGPT) 29 Alkaline Phosphatase 55 Total Protein 6.0 L Albumin 3.1 L Globulin 2.90 Albumin/Globulin Ratio 1.06 Bedside Glucose 137 Medications Medications Current Medications Insulin Glargine (Lantus) 10 unit DAILY@08 SC Last administered on 12/15/16 08 :15; Admin Dose 10 UNIT; Start 12/14/16 at 08:00 Acetaminophen (Tylenol Tab) 650 mg Q6H PRN PO PAIN AND OR ELEVATED TEMP; Start 12/14/16 at 01:30 Ondansetron HCl (Zofran Inj) 4 mg Q4H PRN IV NAUSEA AND/OR VOMITING; Start 03/20 at 01:30 Heparin Sodium (Porcine) (Heparin (5000 Units/0.5 ml)) 5,000 unit BID SC Last administered on 12/15/16 08:07; Admin Dose 5,000 UNIT; Start 12/14/16 at 09:00 Diagnostic Test (Pha) (Accu-Chek) 1 ea 02 XX Last administered on 12/14/16 02: 33; Admin Dose 1 EA; Start 12/14/16 at 02:00 Diagnostic Test (Pha) (Accu-Chek) 1 ea 02 XX Last administered on 12/14/16 02: 33; Admin Dose 1 EA; Start 12/14/16 at 02:00 Ferrous Sulfate (Ferrous Sulfate (Ec)) 325 mg BID PO Last administered on 08:05; Admin Dose 325 MG; Start 12/14/16 at 09:00 Meclizine HCl (Antivert) 12.5 mg TID PO Last administered on 12/15/16 08:05; Admin Dose 12.5 MG; Start 12/14/16 at 09:00 Miscellaneous Information 1 ea NOTE XX ; Start 12/14/16 at 01:30 Glucose (Glutose) 15 gm Q15M PRN PO DECREASED GLUCOSE; Start 12/14/16 at 01:30 Glucose (Glutose) 22.5 gm Q15M PRN PO DECREASED GLUCOSE; Start 12/14/16 at 01: 30 Dextrose (D50w Syringe) 25 ml Q15M PRN IV DECREASED GLUCOSE; Start 12/14/16 at 01:30 Dextrose (D50w Syringe) 50 ml Q15M PRN IV DECREASED GLUCOSE; Start 12/14/16 at 01:30 Glucagon (Glucagen) 1 mg Q15M PRN IM DECREASED GLUCOSE; Start 12/14/16 at 01:30 Glucose (Glutose) 15 gm Q15M PRN BUCCAL DECREASED GLUCOSE; Start 12/14/16 at 01 :30 Linagliptin (Tradjenta) 5 mg DAILY PO Last administered on 12/15/16t 08:08; Admin Dose 5 MG; Start 12/15/16 at 09:00 MARK LEMUS NP Dec 15, 2016 09:41
[2016-12-15] MEDS ORDERED: TAMSULOSIN (SR) 0.4 MG CAP PO SCH (10:00)
[2016-12-15 14:00] VITALS: BP 100/61; RESP 20
--- NOTE | 2016-12-15 19:03 | CONS ---
Date/Time of Note Date/Time of Note DATE: 12/15/16 TIME: 18:55 Assessment/Plan Assessment/Plan Chief Complaint/Hosp Course Patient was admitted with urinary retention and elevated creatinine. He did have a Chau catheter inserted and that was removed today. The patient has voided multiple times last time being 10 minutes earlier and the postvoid residual was about 150 mL. He did have a renal ultrasound and that was normal. The patient was started on tamsulosin and should continue that at home I will order a PSA on the blood drawn on admission and he should have a follow-up in the office later on to make sure that he still emptying his bladder well and follow his benign prostatic hypertrophy and if his PSA is elevated to investigate that further Problems: Consultation Date/Type/Reason Admit Date/Time Dec 13, 2016 at 22:35 Date of Consultation: Dec 15, 2016 Type of Consultation: Urology Reason for Consultation Urinary retention Referring Provider: TOÑITO HOSKINS MD Hx of Present Illness 51-year-old male who is known to have diabetes for about 15 years was seen by his medical doctor, had a blood test and was called later on and told to go to the emergency room because of elevated creatinine and the patient states that he has been having to push to urinate for the past few days. In the emergency room he had a Chau catheter inserted and today the patient was started on tamsulosin Chau catheter that he had was removed and he has since urinated a few times last time being about 10 minutes ago and we checked his postvoid residual it is about 150 mL. Prior to his hospitalization at home he does have nocturia 2-3 times, during the day he voids every 2-3 hours, the urinary stream is slow. There is no dysuria no gross hematuria. He has not been taking any medications for his prostate. Constitutional: no complaints Eyes: no complaints ENT: no complaints Respiratory: no complaints, No cough, No shortness of breath Cardiovascular: no complaints, No chest pain Gastrointestinal: no complaints, No constipation Genitourinary: other (Patient did have urinary retention but now the Chau catheter has been removed and he has been able to urinate and the postvoid residual was about 150 mL) Musculoskeletal: no complaints Skin: no complaints Neurologic: no complaints Endocrine: no complaints Past Medical History Medical History: diabetes Past Surgical History Past Surgical Hx: appendectomy Family History Significant Family History: no pertinent family hx Social History Alcohol Use: none Smoking Status: Never smoker Drug Use: none Exam/Review of Systems Vital Signs Vitals Vital Signs Date Time Temp Pulse Resp B/P Pulse Ox O2 Delivery O2 Flow Rate FiO2 12/15/16 14:00 97.9 79 20 100/61 98 12/14/16 00:00 Room Air Intake and Output 12/14/16 12/14/16 12/15/16 15:00 23:00 07:00 Intake Total 600 ml 2340 ml 350 ml Output Total 2100 ml Balance 600 ml 240 ml 350 ml Exam Constitutional: alert, oriented Psych: no complaints Head: normocephalic Eyes: nl conjunctiva ENMT: nl external ears & nose Neck: non-tender, supple Respiratory: normal air movement Cardiovascular: No edema Gastrointestinal: non-tender, soft Genitourinary - Male: nl penis, nl scrotum, other (Rectal exam revealed large and soft prostate) Musculoskeletal: nl extremities to inspection Extremities: No calf tenderness, No edema, No tenderness Skin: nl turgor Results Result Diagram: 12/15/16 0544 12/15/16 0544 Results 24 hrs Laboratory Tests Test 12/14/16 20:44 12/15/16 05:44 12/15/16 07:56 12/15/16 12:07 Bedside Glucose 144 137 White Blood Count 5.6 Red Blood Count 3.03 L Hemoglobin 8.9 L Hematocrit 26.8 L Mean Corpuscular Volume 88.4 Mean Corpuscular Hemoglobin 29.4 Mean Corpuscular Hemoglobin Concent 33.2 Red Cell Distribution Width 13.0 Platelet Count 192 Mean Platelet Volume 9.0 Neutrophils % 41.7 Lymphocytes % 44.9 Monocytes % 9.2 Eosinophils % 3.6 Basophils % 0.4 Nucleated Red Blood Cells % 0.0 Neutrophils # (Manual) 2.3 Lymphocytes # 2.5 Monocytes # 0.5 Eosinophils # 0.2 Basophils # 0.0 Nucleated Red Blood Cells # 0.0 Sodium Level 140 Potassium Level 4.4 Chloride Level 111 H Carbon Dioxide Level 26 Anion Gap 7 L Blood Urea Nitrogen 20 # Creatinine 1.10 Glucose Level 117 # Calcium Level 8.8 Iron Level 64 Total Iron Binding Capacity 261 Percent Iron Saturation 25 Ferritin 99.4 Total Bilirubin 0.5 Direct Bilirubin 0.00 Indirect Bilirubin 0.5 Aspartate Amino Transf (AST/SGOT) 13 L Alanine Aminotransferase (ALT/SGPT) 29 Alkaline Phosphatase 55 Total Protein 6.0 L Albumin 3.1 L Globulin 2.90 Albumin/Globulin Ratio 1.06 Stool Occult Blood NEGATIVE Test 12/15/16 12:14 12/15/16 17:18 Bedside Glucose 142 131 Medications Medications Current Medications Insulin Glargine (Lantus) 10 unit DAILY@08 SC Last administered on 12/15/16 08 :15; Admin Dose 10 UNIT; Start 12/14/16 at 08:00 Acetaminophen (Tylenol Tab) 650 mg Q6H PRN PO PAIN AND OR ELEVATED TEMP; Start 12/14/16 at 01:30 Ondansetron HCl (Zofran Inj) 4 mg Q4H PRN IV NAUSEA AND/OR VOMITING; Start 03/20 at 01:30 Heparin Sodium (Porcine) (Heparin (5000 Units/0.5 ml)) 5,000 unit BID SC Last administered on 12/15/16 08:07; Admin Dose 5,000 UNIT; Start 12/14/16 at 09:00 Diagnostic Test (Pha) (Accu-Chek) 1 ea 02 XX Last administered on 12/14/16 02: 33; Admin Dose 1 EA; Start 12/14/16 at 02:00 Diagnostic Test (Pha) (Accu-Chek) 1 ea 02 XX Last administered on 12/14/16 02: 33; Admin Dose 1 EA; Start 12/14/16 at 02:00 Ferrous Sulfate (Ferrous Sulfate (Ec)) 325 mg BID PO Last administered on 08:05; Admin Dose 325 MG; Start 12/14/16 at 09:00 Meclizine HCl (Antivert) 12.5 mg TID PO Last administered on 12/15/16 12:15; Admin Dose 12.5 MG; Start 12/14/16 at 09:00 Miscellaneous Information 1 ea NOTE XX ; Start 12/14/16 at 01:30 Glucose (Glutose) 15 gm Q15M PRN PO DECREASED GLUCOSE; Start 12/14/16 at 01:30 Glucose (Glutose) 22.5 gm Q15M PRN PO DECREASED GLUCOSE; Start 12/14/16 at 01: 30 Dextrose (D50w Syringe) 25 ml Q15M PRN IV DECREASED GLUCOSE; Start 12/14/16 at 01:30 Dextrose (D50w Syringe) 50 ml Q15M PRN IV DECREASED GLUCOSE; Start 12/14/16 at 01:30 Glucagon (Glucagen) 1 mg Q15M PRN IM DECREASED GLUCOSE; Start 12/14/16 at 01:30 Glucose (Glutose) 15 gm Q15M PRN BUCCAL DECREASED GLUCOSE; Start 12/14/16 at 01 :30 Linagliptin (Tradjenta) 5 mg DAILY PO Last administered on 12/15/16 08:08; Admin Dose 5 MG; Start 12/15/16 at 09:00 Tamsulosin HCl (Flomax) 0.4 mg ONCE PO Last administered on 12/15/16 10:57; Admin Dose 0.4 MG; Start 12/15/16 at 10:00; Stop 12/15/16 at 23:00 Tamsulosin HCl (Flomax) 0.4 mg HS PO ; Start 12/16/16 at 21:00 GORAN BLOCK MD Dec 15, 2016 19:03
[2016-12-15 20:29] VITALS: BP 112/69; RESP 18
[2016-12-16] MEDS: ACCU-CHEK XX SCH ×2 (01:06)
[2016-12-16 02:00] VITALS: BP 93/53; RESP 18
[2016-12-16 05:45] LABS: HEMOGLOBIN 9.2 g/dl (14.0-18.0); RED BLOOD COUNT 3.14 10^6/ul (4.70-6.10); WHITE BLOOD COUNT 4.9 10^3/ul (4.8-10.8)
[2016-12-16 05:46] LABS: BASOPHILS % 0.4 % (0.0-2.0); EOSINOPHILS # 0.2 10^3/ul (0.0-0.5); EOSINOPHILS % 4.1 % (0.0-7.0); HEMATOCRIT 27.9 % (42.0-52.0); LYMPHOCYTES # 2.4 10^3/ul (0.8-2.9); LYMPHOCYTES % 48.3 % (15.0-51.0); MEAN CORPUSCULAR HEMOGLOBIN 29.3 pg (29.0-33.0); MEAN CORPUSCULAR VOLUME 88.9 fl (82.0-101.0); MEAN PLATELET VOLUME 8.9 fl (7.4-10.4); MONOCYTE # 0.5 10^3/ul (0.3-0.9); MONOCYTES % 9.5 % (0.0-11.0); NEUTROPHIL # 1.9 10^3/ul (1.6-7.5); NEUTROPHILS % 37.7 % (39.0-77.0); PLATELET COUNT 191 10^3/UL (140-415)
[2016-12-16 06:05] LABS: CALCIUM 9.2 mg/dl (8.4-10.2); CREATININE 1.19 mg/dl (0.61-1.24); POTASSIUM 4.3 mmol/L (3.5-5.1)
[2016-12-16 06:45] LABS: RETICULOCYTE COUNT % 1.2 % (0.5-1.5)
[2016-12-16 07:06] LABS: THYROID STIMULATING HORMONE 1.55 MIU/L (0.465-4.680)
[2016-12-16 07:45] VITALS: BP 130/79; RESP 20
[2016-12-16] MEDS: INSULIN ASPART [NOVOLOG] 3 ML PEN SC SCH (08:15)
[2016-12-16] MEDS: LINAGLIPTIN 5 MG TABLET PO SCH (08:27)
[2016-12-16] MEDS: FERROUS SULFATE (EC) 325 MG TAB PO SCH (08:27)
[2016-12-16] MEDS: MECLIZINE 12.5 MG TAB PO SCH (08:28)
[2016-12-16] MEDS ORDERED: TAMS-14 PO (08:28)
--- NOTE | 2016-12-16 08:28 | PDOCDIS ---
Discharge Instructions CONDITION Patient Condition: Stable HOME CARE INSTRUCTIONS: Your diet recommendation is: carbohydrate-controlled diet FOLLOW UP/APPOINTMENTS Follow-up Plan 1.Follow up with primary care physician in 1 week If you don't have one please let someone know, we can give you resources that may help you pick one. You may also call your insurance company to assign one to you. Review your medication list with your nurse before leaving and if you need new prescriptions please let your nurse know. I may have made changes to your home medications or given you new prescriptions, please let your primary doctor know as well. Stay compliant with your medications and report any side effects to your PCP or pharmacist. Return to the ER if you have any concerns and cannot reach your doctors or call your insurance company, they usually have a nurse that can help you. 2. Call 911 or go to the nearest emergency room if experiencing loss of consciousness, dizziness, chest pain, shortness of breath, vomiting/abdominal pain, speech difficulties, motor weakness or any unusual symptoms. REFERRALS Other Referrals Urology outpatient follow-up. MARK LEMUS NP Dec 16, 2016 08:28
[2016-12-16] MEDS: HEPARIN 5,000 UNIT/0.5 ML VIAL SC SCH (08:32)
[2016-12-16] MEDS: INSULIN GLARGINE [LANtus] 3 ML PEN SC SCH (08:38)
--- NOTE | 2016-12-16 15:13 | DS ---
Date/Time of Note Date/Time of Note DATE: 12/16/16 TIME: 15:08 Discharge Summary Admission/Discharge Info Admit Date/Time Dec 13, 2016 at 22:35 Discharge Date/Time Dec 16, 2016 at 11:45 Discharge Diagnosis 1. Acute kidney injury most likely 2/2 obstructive uropathy. Resolved. 2. Urinary retention. Resolved 3. Adult onset diabetes. A1c 6.3. Good glycemic control. 4. Normocytic anemia, likely of chronic disease given history of diabetes. H&H stable Patient Condition: Stable Consults , nephrology Dr. Triplett, urology Hospital Course This is a very pleasant 51-year-old male with a past medical history of type 2 diabetes, appendectomy, who was told by primary care physician to go to the emergency room for worsening renal function and difficulty urination. Upon arrival, patient was noted with a BUN 38 and creatinine 1.81. In the emergency room, a Chau catheter was placed. Patient was then admitted. Nephrology consultation was called. Patient was continued on Flomax. He was also continued on home medication for underlying diabetes. With the Chau, patient is feeling improvement in his symptoms. Renal function improved. At this time, etiology of acute kidney injury likely obstructive uropathy. Renal Ultrasound was negative. Patient was also evaluated by urology. PSA was negative. Chau was discontinued and patient was able to void without any difficulties. Kidney function remained stable thereafter. At this time, there is no further inpatient workup indicated. Patient is medically stable for discharge with outpatient urology follow-up. Disposition: Patient will be discharged home today. Case management was called for arranging urology outpatient follow-up. Patient verbalized to 7 sessions. Approximately 60 minutes was spent on cortical discharge of this patient. Patient was seen in collaboration with DR. Newton. Home Meds Active Scripts Tamsulosin Hcl* (Flomax*) 0.4 Mg Cap.er.24h, 0.4 MG PO HS, #30 CAP Prov:MARK LEMUS V. PORTER SAMPLE CASE 12/16/16 Reported Medications Sitagliptin* (Januvia*) 100 Mg Tablet, 100 MG PO DAILY, #30 TAB 12/13/16 Ferrous Sulfate* (Ferrous Sulfate*) 325 Mg Tabec, 325 MG PO Q12H, TAB 12/13/16 Meclizine Hcl* (Antivert*) 12.5 Mg Tab, 12.5 MG PO TID, #30 TAB 12/13/16 Discontinued Reported Medications Glyburide, Micro-Metformin Hcl (Glyburid-Metformin) 1 Tab Tablet, 1 TAB PO DAILY 09/08/13 Discontinued Scripts Ibuprofen* (Ibuprofen*) 600 Mg Tablet, 600 MG PO Q6, #20 TAB Prov:BHAVNA VAZ MD 06/09/15 Azithromycin* (Zithromax*) 250 Mg Tablet, 250 MG PO .AdelsoPACK DIRECTED, #6 TAB TAKE 500 MG (2 TABS) THE FIRST DAY THEN 250 MG (1 TAB) DAYS 2-5 Prov:BHAVNA VAZ MD 06/09/15 Follow-up Plan HOME CARE INSTRUCTIONS: Your diet recommendation is: carbohydrate-controlled diet FOLLOW UP/APPOINTMENTS Follow-up Plan 1.Follow up with primary care physician in 1 week If you don't have one please let someone know, we can give you resources that may help you pick one. You may also call your insurance company to assign one to you. Review your medication list with your nurse before leaving and if you need new prescriptions please let your nurse know. I may have made changes to your home medications or given you new prescriptions, please let your primary doctor know as well. Stay compliant with your medications and report any side effects to your PCP or pharmacist. Return to the ER if you have any concerns and cannot reach your doctors or call your insurance company, they usually have a nurse that can help you. 2. Call 911 or go to the nearest emergency room if experiencing loss of consciousness, dizziness, chest pain, shortness of breath, vomiting/abdominal pain, speech difficulties, motor weakness or any unusual symptoms. REFERRALS Other Referrals Urology outpatient follow-up. Primary Care Provider [facility] Pending Labs Laboratory Tests Test 12/15/16 17:18 12/15/16 20:37 12/16/16 05:12 12/16/16 08:26 Bedside Glucose 131mg/dL (70-220) 151mg/dL (70-220) 139mg/dL (70-220) White Blood Count 4.910^3/ul (4.8-10.8) Red Blood Count 3.1410^6/ul (4.70-6.10) Hemoglobin 9.2g/dl (14.0-18.0) Hematocrit 27.9% (42.0-52.0) Mean Corpuscular Volume 88.9fl (82.0-101.0) Mean Corpuscular Hemoglobin 29.3pg (29.0-33.0) Mean Corpuscular Hemoglobin Concent 33.0g/dl (32.0-37.0) Red Cell Distribution Width 13.0% (11.5-14.5) Platelet Count 22690^3/UL (140-415) Mean Platelet Volume 8.9fl (7.4-10.4) Neutrophils % 37.7% (39.0-77.0) Lymphocytes % 48.3% (15.0-51.0) Monocytes % 9.5% (0.0-11.0) Eosinophils % 4.1% (0.0-7.0) Basophils % 0.4% (0.0-2.0) Nucleated Red Blood Cells % 0.0/100WBC (0.0-0.0) Neutrophils # 1.910^3/ul (1.6-7.5) Lymphocytes # 2.410^3/ul (0.8-2.9) Monocytes # 0.510^3/ul (0.3-0.9) Eosinophils # 0.210^3/ul (0.0-0.5) Basophils # 0.010^3/ul (0.0-0.1) Nucleated Red Blood Cells # 0.010^3/ul (0.0-0.0) Erythrocyte Sedimentation Rate 36mm/Hr (0-20) Absolute Reticulocyte Count 0.036X10^6 (0.020-0.110) Percent Reticulocyte Count 1.2% (0.5-1.5) Sodium Level 141mmol/L (135-144) Potassium Level 4.3mmol/L (3.5-5.1) Chloride Level 107mmol/L (97-110) Carbon Dioxide Level 28mmol/L (21-31) Anion Gap 10 (8-16) Blood Urea Nitrogen 21mg/dl (7-20) Creatinine 1.19mg/dl (0.61-1.24) Glucose Level 146mg/dl (70-220) Calcium Level 9.2mg/dl (8.4-10.2) Ferritin 111.0ng/ml (11.1-264.0) Lactate Dehydrogenase 339IU/L (313-618) Vitamin B12 Level 280pg/ml (239-931) Folate Pending Thyroid Stimulating Hormone (TSH) 1.550MIU/L (0.465-4.680) MARK LEMUS NP Dec 16, 2016 15:13
[2016-12-16 19:29] LABS: FOLATE 9.4 ng/ml (2.8-20.0)
[2016-12-16] MEDS ORDERED: TAMSULOSIN (SR) 0.4 MG CAP PO SCH (21:00)
== END 2016-12-16 11:45 | disposition home or self-care (01) | DRG 699 ==
LOC: E/R 17:56 → MS2 22:35
PROVIDERS: ADMIT Internal Medicine; ATTEND Internal Medicine
DX: N13.9 Obstructive and reflux uropathy, unspecified (principal); N17.9 Acute kidney failure, unspecified; E11.9 Type 2 diabetes mellitus without complications; D63.8 Anemia in other chronic diseases classified elsewhere; R33.9 Retention of urine, unspecified
CPT/HCPCS: 36415; 71010; 76775; 80048; 80053; 80061; 81001; 81003; 82270; 82436; 82570; 82607; 82728; 82746; 82962; 83036; 83540; 83615; 83690; 83735; 84100; 84133; 84153; 84154; 84300; 84443; 84484; 85025; 85045; 85651; 86320; 87086; 93005; J1644; J1815; J7030

== ENCOUNTER 2017-07-31 04:24 | Emergency (ER) | END 2017-07-31 07:16 | disposition home or self-care (01) ==